=== PATIENT | female | born 1975 | race Caucasian/White ===

== ENCOUNTER 2018-01-28 10:34 | Emergency (ER) | payer MEDICAID ==
[~2018-01-28] VITALS: Ht 160 cm; Wt 70.4 kg
[2018-01-28] MEDS ORDERED: HYDROcodone/APAP 5/325 TABLET PO PRN (11:00)
[2018-01-28] MEDS ORDERED: HYDROcodone/APAP 5/325 TABLET ONE (11:29)
[2018-01-28 11:56] VITALS: BP 145/93
== END 2018-01-28 12:08 | disposition home or self-care (01) ==
LOC: ED 11:45
DX: S93.491A Sprain of other ligament of right ankle, initial encounter (principal); W10.9XXA Fall (on) (from) unspecified stairs and steps, initial encounter; Y93.89 Activity, other specified; Y92.009 Unspecified place in unspecified non-institutional (private) residence as the place of occurrence of the external cause; Y99.8 Other external cause status
CPT/HCPCS: 99284

== ENCOUNTER 2019-12-26 15:38 | Emergency (ER) | payer MEDICAID ==
[~2019-12-26] VITALS: Ht 162.6 cm; Wt 75.9 kg
--- NOTE | 2019-12-26 16:09 | NUR ---
pt moved from lobby to 15
[2019-12-26] MEDS ORDERED: SODIUM CHLORIDE FLUSH 10ML SYR IVF ONE (16:30)
[2019-12-26] MEDS ORDERED: ONDANSETRON 2MG/ML, 2ML IVPush ONE (16:30)
[2019-12-26] MEDS ORDERED: ONDANSETRON 2MG/ML, 2ML ONE (16:38)
[2019-12-26] MEDS ORDERED: MORPHINE SULFATE 4 MG/ML, 1ML ONE ×3 (16:38→20:13)
[2019-12-26] MEDS: MORPHINE SULFATE 4 MG/ML, 1ML IVPush PRN ×2 (16:41→18:13)
[2019-12-26 16:54] LABS: BASOPHILS % (AUTO) 1 % (0-1); EOSINOPHILS % (AUTO) 1 % (1-7); LYMPHOCYTES % (AUTO) 17 % (22-44); MEAN CORPUSCULAR HEMOGLOBIN 21.1 pg (27.0-34.8); MONOCYTES % (AUTO) 5 % (2-9); NEUTROPHILS % (AUTO) 77 % (42-75); PLATELET COUNT 437 x10^3/uL (130-400); RED BLOOD COUNT 4.65 x10^6/uL (3.82-5.3); RED CELL DISTRIBUTION WIDTH 20.2 % (9.6-15.2)
[2019-12-26 16:55] LABS: MICROSCOPIC NOT IND
--- NOTE | 2019-12-26 17:00 | NUR ---
pt resting in bed, family at bedside
[2019-12-26 17:02] LABS: ALBUMIN 3.6 g/dL (3.4-5.0); ANION GAP 8 mmol/L (5-15); CALCIUM 8.6 mg/dL (8.5-10.1); CHLORIDE 104 mmol/L (98-107); CREATININE 0.78 mg/dL (0.55-1.02)
[2019-12-26 17:06] LABS: MD NO; MEAN CORPUSCULAR HGB CONC 29.9 g/dL (32.4-35.8)
--- NOTE | 2019-12-26 18:16 | NUR ---
pt remedicated for pain, awaiting ct
--- NOTE | 2019-12-26 18:55 | NUR ---
Nabila milton in EDM - 12/26/19 at 1904 by KEREN REPORT RECIEVED FROM JENIFFER LEE PT TO CT AT THIS TIME
--- NOTE | 2019-12-26 18:58 | NUR ---
report recieved from raphael mora resting in [facility]. states pain is better and expresses no other needs at this time
--- NOTE | 2019-12-26 19:54 | NUR ---
PT. RETURN FROM CT AT THIS TIME.
[2019-12-26] MEDS ORDERED: MORPHINE SULFATE 4 MG/ML, 1ML IVPush ONE (20:30)
[2019-12-26 20:42] VITALS: BP 134/57
== END 2019-12-26 20:51 | disposition home or self-care (01) ==
LOC: ED 17:38
DX: R10.32 Left lower quadrant pain (principal); R11.0 Nausea; Z90.49 Acquired absence of other specified parts of digestive tract
CPT/HCPCS: 36415; 74177; 76830; 80048; 81003; 82040; 84703; 85025; 96374; 96375; 96376; 99285; J2270; J2405

== ENCOUNTER 2020-06-19 20:49 | Emergency (ER) | payer MEDICAID ==
[~2020-06-19] VITALS: Ht 162.6 cm; Wt 77.2 kg
[2020-06-19] MEDS ORDERED: ONDANSETRON 2MG/ML, 2ML ONE (21:27)
[2020-06-19] MEDS ORDERED: MORPHINE SULFATE 4 MG/ML, 1ML ONE ×3 (21:27→23:33)
[2020-06-19] MEDS ORDERED: ONDANSETRON 2MG/ML, 2ML IVPush ONE (21:30)
[2020-06-19] MEDS: MORPHINE SULFATE 4 MG/ML, 1ML IVPush PRN ×2 (21:33→22:22)
[2020-06-19 21:34] LABS: BASOPHILS % (AUTO) 1 % (0-1); EOSINOPHILS % (AUTO) 2 % (1-7); LYMPHOCYTES % (AUTO) 26 % (22-44); MEAN CORPUSCULAR HEMOGLOBIN 21.6 pg (27.0-34.8); MEAN CORPUSCULAR HGB CONC 30.9 g/dL (32.4-35.8); MEAN PLATELET VOLUME 9.1 fL (7.4-10.4); MONOCYTES % (AUTO) 6 % (2-9); NEUTROPHILS % (AUTO) 66 % (42-75); PLATELET COUNT 457 x10^3/uL (130-400); RED CELL DISTRIBUTION WIDTH 19.3 % (9.6-15.2)
[2020-06-19 21:40] LABS: MD NO
[2020-06-19 21:43] LABS: ALANINE AMINOTRANSFERASE 27 U/L (12-78); ALBUMIN 3.4 g/dL (3.4-5.0); ANION GAP 6 mmol/L (5-15); CALCIUM 7.8 mg/dL (8.5-10.1); CHLORIDE 110 mmol/L (98-107); CREATININE 0.76 mg/dL (0.55-1.02)
[2020-06-19 21:48] LABS: ALKALINE PHOSPHATASE 90 U/L (45-117); BILIRUBIN,TOTAL 0.2 mg/dL (0.2-1.0); TOTAL PROTEIN 7.4 g/dL (6.4-8.2); TROPONIN I < 0.015 ng/mL (0.000-0.045)
[2020-06-19] MEDS ORDERED: OMNIPAQUE 350 MG/ML, 100ML BOTTLE ONE (22:04)
--- NOTE | 2020-06-19 22:31 | NUR ---
PT UP TO AMBULATE TO BATHROOM, WALKED WITH SHUFFLING GAIT AND NOTED INCREASED PAIN TO LEFT GROIN. ASSIST, PT ABLE TO PROVIDE UA SAMPLE. PT RETURNED SAFELY TO BED, MEDICATED ORDERED WITH IV MORPHINE. PT VERBALIZES APPRECIATION FOR CARES AND CONCERN. IN BED WITH NO SIGNS OR SYMPTOMS OF ACUTE DISTRESS NOTED RESPIRATIONS EVEN AND UNLABORED. PT STATES THAT SHES BEEN NOTING SOME VAGINAL SPOTTING, LMP 06/04.
[2020-06-19 22:36] LABS: MICROSCOPIC NOT IND
--- NOTE | 2020-06-19 22:57 | NUR ---
PT IN BED WITH NO SIGNS OR SYMPTOMS OF ACUTE DISTRESS NOTED RESPIRATIONS EVEN AND UNLABORED MD AT BEDSIDE TO ASSESS.
--- NOTE | 2020-06-19 23:09 | NUR ---
PT MOVED TO COMPLAINT COORDINATOR BED, AWARE AND AGREEABLE WITH PLAN OF CARE. NO SIGNS OR SYMPTOMS OF ACUTE DISTRESS NOTED RESPIRATIONS EVEN AND UNLABORED
[2020-06-19 23:58] LABS: CLUE CELLS NONE SEEN (NONE SEEN); WET PREP WBCS NONE SEEN (FEW)
[2020-06-20] MEDS ORDERED: MORPHINE SULFATE 4 MG/ML, 1ML IVPush ONE
--- NOTE | 2020-06-20 00:09 | NUR ---
MD AT BEDSIDE TO ASSESS, PT WILL DC SOON. PT IN BED WITH AT BEDSIDE NO SIGNS OR SYMPTOMS OF ACUTE DISTRESS NOTED RESPIRATIONS EVEN AND UNLABORED
[2020-06-20] MEDS ORDERED: FLUCONAZOLE 100 MG TABLET ONE ×2 (00:19→00:30)
[2020-06-20] MEDS ORDERED: FLUCONAZOLE 100 MG TABLET PO ONE (00:30)
[2020-06-20 00:48] VITALS: BP 100/54
== END 2020-06-20 00:50 | disposition home or self-care (01) ==
LOC: ED 21:35
DX: R10.12 Left upper quadrant pain (principal); R10.2 Pelvic and perineal pain; I10 Essential (primary) hypertension; Z90.49 Acquired absence of other specified parts of digestive tract
CPT/HCPCS: 36415; 74177; 80053; 81003; 83690; 84484; 84703; 85025; 87210; 87491; 87591; 87808; 96374; 96375; 96376; 99285; J2270; J2405; Q9967

== ENCOUNTER 2020-06-21 17:14 | Inpatient (IN) | payer MEDICAID ==
[~2020-06-21] VITALS: Ht 162.6 cm; Wt 79.3 kg
[2020-06-21] MEDS ORDERED: SODIUM CHLORIDE FLUSH 10ML SYR IVF ONE (18:30)
[2020-06-21] MEDS ORDERED: ONDANSETRON 2MG/ML, 2ML IVPush ONE (18:30)
[2020-06-21 18:54] LABS: ALANINE AMINOTRANSFERASE 57 U/L (12-78); ALBUMIN 3.6 g/dL (3.4-5.0); ANION GAP 6 mmol/L (5-15); CALCIUM 8.3 mg/dL (8.5-10.1); CHLORIDE 108 mmol/L (98-107); CREATININE 0.75 mg/dL (0.55-1.02)
[2020-06-21 18:56] LABS: ALKALINE PHOSPHATASE 104 U/L (45-117); BASOPHILS % (AUTO) 1 % (0-1); BILIRUBIN,TOTAL 0.1 mg/dL (0.2-1.0); EOSINOPHILS % (AUTO) 1 % (1-7); LYMPHOCYTES % (AUTO) 23 % (22-44); MEAN CORPUSCULAR HEMOGLOBIN 21.3 pg (27.0-34.8); MEAN CORPUSCULAR HGB CONC 30.7 g/dL (32.4-35.8); MEAN PLATELET VOLUME 9.1 fL (7.4-10.4); MONOCYTES % (AUTO) 5 % (2-9); NEUTROPHILS % (AUTO) 69 % (42-75); PLATELET COUNT 477 x10^3/uL (130-400); RED BLOOD COUNT 4.45 x10^6/uL (3.82-5.3); RED CELL DISTRIBUTION WIDTH 19.4 % (9.6-15.2); TOTAL PROTEIN 7.7 g/dL (6.4-8.2)
[2020-06-21 19:02] LABS: HEMOGRAM NOTE RECHECKED
[2020-06-21 19:21] LABS: MD MORPH REVIEW ONLY
[2020-06-21 19:22] LABS: ANISOCYTOSIS 1+; HYPOCHROMIA 1+; MICROCYTOSIS 1+
[2020-06-21 19:23] LABS: OVALOCYTES 1+
[2020-06-21 19:24] LABS: <PLATELET ESTIMATE> INCREASED; LARGE PLATELETS 1+
[2020-06-21] MEDS ORDERED: ONDANSETRON 2MG/ML, 2ML ONE (20:03)
[2020-06-21] MEDS ORDERED: MORPHINE SULFATE 4 MG/ML, 1ML ONE ×2 (20:04→21:41)
[2020-06-21] MEDS: MORPHINE SULFATE 4 MG/ML, 1ML IVPush PRN ×2 (20:16→21:46)
--- NOTE | 2020-06-21 20:19 | NUR ---
FIRST CONTACT WITH PT. STATES SHE WAS SEEN HERE RECENELY FOR ABD PAIN. NO DIAGNOSIS. BACK BECAUSE PAIN IS WORSE. RLQ, BLADDER, LLQ, BILAT FLANK PAIN. 12/23. DENIES ANY URINARY SYMPTOMS. PT AMBULATORY TO BATHROOM FOR URINE SAMPLE. PIV PLACED AND PAIN MEDS/ZOFRAN GIVEN.
[2020-06-21 20:54] LABS: MICROSCOPIC NOT IND
[2020-06-21] MEDS ORDERED: SODIUM CHLORIDE 0.9% 1,000ML IVBOLUS ONE (21:00)
--- NOTE | 2020-06-21 21:39 | NUR ---
pt reports increased pain after US and requesting more pain meds. pt medicated for pain per emar and fluids started also.
[2020-06-21 22:17] LABS: BASOPHILS % (AUTO) 1 % (0-1); EOSINOPHILS % (AUTO) 1 % (1-7); LYMPHOCYTES % (AUTO) 30 % (22-44); MEAN CORPUSCULAR HEMOGLOBIN 21.1 pg (27.0-34.8); MEAN CORPUSCULAR HGB CONC 30.3 g/dL (32.4-35.8); MEAN PLATELET VOLUME 9.1 fL (7.4-10.4); MONOCYTES % (AUTO) 6 % (2-9); NEUTROPHILS % (AUTO) 62 % (42-75); PLATELET COUNT 464 x10^3/uL (130-400); RED CELL DISTRIBUTION WIDTH 19.1 % (9.6-15.2)
--- NOTE | 2020-06-21 22:20 | NUR ---
erp with add on order for ct scan of abd
[2020-06-21 22:24] LABS: ALANINE AMINOTRANSFERASE 64 U/L (12-78); ALBUMIN 3.5 g/dL (3.4-5.0); ANION GAP 8 mmol/L (5-15); CALCIUM 8.3 mg/dL (8.5-10.1); CHLORIDE 110 mmol/L (98-107); CREATININE 0.77 mg/dL (0.55-1.02)
[2020-06-21 22:27] LABS: ALKALINE PHOSPHATASE 100 U/L (45-117); BILIRUBIN,TOTAL 0.2 mg/dL (0.2-1.0); MD NO; TOTAL PROTEIN 7.3 g/dL (6.4-8.2)
--- NOTE | 2020-06-21 22:51 | NUR ---
pt to ct at this time
--- NOTE | 2020-06-21 23:06 | NUR ---
PT RESQUESTING MORE PAIN MEDS.
[2020-06-22] MEDS ORDERED: LISI-170 PO (00:04)
--- NOTE | 2020-06-22 00:33 | NUR ---
report to wisam razo
[2020-06-22 00:47] VITALS: BP 146/71
[2020-06-22] MEDS ORDERED: hydrALAzine 20 MG/ML, 1ML IVPush PRN (01:00)
[2020-06-22] MEDS ORDERED: ONDANSETRON ODT 4 MG PO PRN (01:00)
[2020-06-22] MEDS ORDERED: METOCLOPRAMIDE 5 MG/ML, 2ML IVPush PRN (01:00)
[2020-06-22] MEDS ORDERED: ACETAMINOPHEN 325 MG TABLET PO PRN (01:00)
[2020-06-22] MEDS ORDERED: PROMETHAZINE 25 MG/ML, 1ML IM PRN (01:00)
[2020-06-22] MEDS ORDERED: BISACODYL 10 MG SUPP PR PRN (01:00)
[2020-06-22] MEDS: ENOXAPARIN 40 MG/0.4 ML SQ SCH (01:12)
[2020-06-22] MEDS: KETOROLAC 30 MG/1 ML IV PRN ×2 (01:13→07:20)
[2020-06-22] MEDS: D5%-0.9% NACL 1,000 ML IV SCH ×2 (01:23→07:58)
[2020-06-22] MEDS: OXYcodone IR 5MG TABLET PO PRN ×6 (03:26→23:40)
[2020-06-22 05:06] LABS: BASOPHILS % (AUTO) 1 % (0-1); EOSINOPHILS % (AUTO) 2 % (1-7); LYMPHOCYTES % (AUTO) 38 % (22-44); MEAN CORPUSCULAR HEMOGLOBIN 21.5 pg (27.0-34.8); MEAN CORPUSCULAR HGB CONC 30.6 g/dL (32.4-35.8); MEAN PLATELET VOLUME 8.9 fL (7.4-10.4); MONOCYTES % (AUTO) 6 % (2-9); NEUTROPHILS % (AUTO) 52 % (42-75); PLATELET COUNT 386 x10^3/uL (130-400); RED BLOOD COUNT 3.86 x10^6/uL (3.82-5.3); RED CELL DISTRIBUTION WIDTH 19.2 % (9.6-15.2)
[2020-06-22 05:11] LABS: ALBUMIN 2.7 g/dL (3.4-5.0); ANION GAP 5 mmol/L (5-15); CALCIUM 7.4 mg/dL (8.5-10.1); CHLORIDE 113 mmol/L (98-107); CHOLESTEROL, TOTAL 145 mg/dL (140-239); TRIGLYCERIDES 103 mg/dL (50-200); VLDL CHOLESTEROL 21 mg/dL (0-25)
[2020-06-22 05:16] LABS: MD NO
[2020-06-22 05:21] LABS: % IRON SATURATION 5 % (20-55); ALANINE AMINOTRANSFERASE 137 U/L (12-78); ALKALINE PHOSPHATASE 110 U/L (45-117); BILIRUBIN,TOTAL 0.3 mg/dL (0.2-1.0); CHOL/HDL RATIO 4.1; HDL CHOL % 24 % (28-40); HDL CHOLESTEROL (DIRECT) 35 mg/dL (40-60); IRON LEVEL 19 mcg/dL (50-170); LDL CHOLESTEROL,CALCULATED 89 mg/dL (54-169); LDL/HDL RATIO 2.5 (0.5-3.0); TOTAL IRON BINDING CAPACITY 363 mcg/dL (250-450); TOTAL PROTEIN 6.1 g/dL (6.4-8.2); TRANSFERRIN 280 mg/dL (200-360)
[2020-06-22 07:20] VITALS: BP 120/67
[2020-06-22] MEDS: IRON SUCROSE COMPLEX 100MG/5ML IV SCH (08:00)
[2020-06-22] MEDS ORDERED: LISINOPRIL 20 MG TABLET PO SCH (09:00)
[2020-06-22] MEDS: CEFTRIAXONE PMX 1GM/50ML 50 ML IV SCH (09:48)
[2020-06-22] MEDS: METRONIDAZOLE PMX 500MG/100ML 100 ML IV SCH ×2 (10:24→17:56)
[2020-06-22] MEDS: MORPHINE SULFATE 4 MG/ML, 1ML IVPush PRN ×4 (10:32→22:23)
[2020-06-22 12:09] VITALS: BP 110/62
[2020-06-22 18:51] VITALS: BP 110/72
[2020-06-22] MEDS: ONDANSETRON 2MG/ML, 2ML IVPush PRN (19:15)
[2020-06-23 01:01] VITALS: BP 99/62
[2020-06-23] MEDS: ENOXAPARIN 40 MG/0.4 ML SQ SCH (01:31)
[2020-06-23] MEDS: KETOROLAC 30 MG/1 ML IV PRN ×2 (01:31→09:32)
[2020-06-23] MEDS: METRONIDAZOLE PMX 500MG/100ML 100 ML IV SCH ×3 (02:28→17:46)
[2020-06-23] MEDS: MORPHINE SULFATE 4 MG/ML, 1ML IVPush PRN ×4 (02:29→17:46)
[2020-06-23 05:22] LABS: BASOPHILS % (AUTO) 1 % (0-1); EOSINOPHILS % (AUTO) 2 % (1-7); LYMPHOCYTES % (AUTO) 25 % (22-44); MEAN CORPUSCULAR HEMOGLOBIN 21.5 pg (27.0-34.8); MEAN CORPUSCULAR HGB CONC 30.1 g/dL (32.4-35.8); MEAN PLATELET VOLUME 8.8 fL (7.4-10.4); MONOCYTES % (AUTO) 5 % (2-9); NEUTROPHILS % (AUTO) 68 % (42-75); PLATELET COUNT 375 x10^3/uL (130-400); RED BLOOD COUNT 3.79 x10^6/uL (3.82-5.3); RED CELL DISTRIBUTION WIDTH 19.2 % (9.6-15.2)
[2020-06-23 05:25] LABS: MD NO
[2020-06-23 05:31] LABS: ALBUMIN 2.9 g/dL (3.4-5.0); ANION GAP 6 mmol/L (5-15); CALCIUM 7.8 mg/dL (8.5-10.1); CHLORIDE 109 mmol/L (98-107)
[2020-06-23 05:35] LABS: ALANINE AMINOTRANSFERASE 348 U/L (12-78); ALKALINE PHOSPHATASE 149 U/L (45-117); BILIRUBIN,TOTAL 0.6 mg/dL (0.2-1.0); CREATININE 0.69 mg/dL (0.55-1.02); TOTAL PROTEIN 6.3 g/dL (6.4-8.2)
[2020-06-23 07:25] VITALS: BP 101/64
[2020-06-23] MEDS: IRON SUCROSE COMPLEX 100MG/5ML IV SCH (07:46)
[2020-06-23] MEDS ORDERED: LISINOPRIL 10 MG TABLET PO SCH (09:00)
[2020-06-23] MEDS: CEFTRIAXONE PMX 1GM/50ML 50 ML IV SCH (09:32)
[2020-06-23] MEDS: ONDANSETRON 2MG/ML, 2ML IVPush PRN (10:40)
[2020-06-23] MEDS: OXYcodone IR 5MG TABLET PO PRN ×3 (10:41→19:58)
[2020-06-23] MEDS: DOCUSATE 100 MG CAPSULE PO PRN ×2 (10:56→20:06)
[2020-06-23 12:35] VITALS: BP 119/79
[2020-06-23 19:47] VITALS: BP 113/60
[2020-06-24 00:40] VITALS: BP 113/62
[2020-06-24] MEDS: MORPHINE SULFATE 4 MG/ML, 1ML IVPush PRN (00:47)
[2020-06-24] MEDS: ENOXAPARIN 40 MG/0.4 ML SQ SCH (00:47)
[2020-06-24] MEDS: METRONIDAZOLE PMX 500MG/100ML 100 ML IV SCH ×2 (02:28→10:57)
[2020-06-24 06:05] LABS: INTERNATIONAL NORMALIZED RATIO 1.1 (0.93-1.1); PROTHROMBIN TIME 11.8 Seconds (9.6-11.5)
[2020-06-24 06:09] LABS: CHLORIDE 111 mmol/L (98-107)
[2020-06-24 06:23] LABS: ALANINE AMINOTRANSFERASE 243 U/L (12-78); ALKALINE PHOSPHATASE 133 U/L (45-117); ANION GAP 4 mmol/L (5-15); CREATININE 0.81 mg/dL (0.55-1.02); TOTAL PROTEIN 6.4 g/dL (6.4-8.2)
[2020-06-24 06:36] LABS: BILIRUBIN,TOTAL 0.1 mg/dL (0.2-1.0)
[2020-06-24 07:06] VITALS: BP 127/75
[2020-06-24] MEDS: IRON SUCROSE COMPLEX 100MG/5ML IV SCH (09:16)
[2020-06-24] MEDS: CEFTRIAXONE PMX 1GM/50ML 50 ML IV SCH (09:16)
[2020-06-24] MEDS: DOCUSATE 100 MG CAPSULE PO PRN (09:19)
[2020-06-24] MEDS: OXYcodone IR 5MG TABLET PO PRN ×2 (09:19→16:07)
[2020-06-24 13:12] VITALS: BP 140/72
[2020-06-24] MEDS ORDERED: ONDA4TAB13 PO (13:54)
[2020-06-24] MEDS ORDERED: LISI-170 PO (13:54)
[2020-06-24] MEDS ORDERED: OXYC5TAB98 PO (13:54)
[2020-06-24] MEDS ORDERED: FERR324T5 PO (13:54)
[2020-06-24] MEDS ORDERED: METR500T PO (13:54)
[2020-06-24] MEDS ORDERED: CEFD300C37 PO (13:54)
== END 2020-06-24 16:56 | disposition home or self-care (01) | DRG 390 ==
LOC: ED 20:24 → EDIP 06-22 00:11 → 4NE 06-22 00:44 → 3N 06-22 11:44
PROVIDERS: ADMIT Internal Medicine; ATTEND Hospitalist
DX: K56.7 Ileus, unspecified (principal); I10 Essential (primary) hypertension; D50.9 Iron deficiency anemia, unspecified; D25.9 Leiomyoma of uterus, unspecified; R10.2 Pelvic and perineal pain; N92.0 Excessive and frequent menstruation with regular cycle; Z90.49 Acquired absence of other specified parts of digestive tract
CPT/HCPCS: 36415; 96361; 96374; 96375; 96376; 99285; J7042; 74176; 76700; 76830; 80053; 80061; 80074; 80299; 81003; 82607; 82728; 83036; 83516; 83540; 83550; 83735; 84100; 84443; 84466; 85025; 85610; 86038; 87040; G0378; J0696; J1650; J1756; J1885; J2405; J2550; J2270; J7030